=== PATIENT | male | born 1960 | race Caucasian/White ===

== ENCOUNTER 2016-12-09 19:36 | Inpatient (IN) | payer BC, SELFPAY ==
--- NOTE | ~2016-12-09 | CN ---
Consultation Report [facility] [address] [place]. [address] NAME: AMBAR DELGADO : 62 STATUS : ADM IN PAT#: [id number] AGE: 56 ADM/REG DATE : 12/09/16 MR#: [id number] REPORT SERV DATE: 12/10/16 DICTATED BY: SHAHRIAR SAN DATE: 12/10/16 REPORT STATUS : Draft TRANSCRIBED BY: MODVerónica DATE: 12/10/16 DATE OF CONSULTATION: HISTORY OF PRESENT ILLNESS: The patient is a 56-year-old gentleman whom I am consulted for Hemoccult-positive stool. The patient is somewhat confusing historian, but is cooperative. He gives a history of altered mental status with falls and slurred speech. Also was noted to have black stools, which were Hemoccult-positive in the emergency room. The patient complains of some heartburn, but denies any abdominal pain. He has no history of ulcers, but has had a history of ulcerative colitis with colon cancer in the past, and evidently he had a colectomy. There was question whether he had a colonoscopy back in 2012. He has some occasional pain in his right side of his abdomen, but otherwise no abdominal pain. No dysphagia. No vomiting. PAST MEDICAL HISTORY: 1. The patient with bipolar disorder. 2. History of ulcerative colitis and question colon cancer as above. 3. Hypertension. 4. History of anemia. 5. Herniorrhaphy. MEDICATIONS: Reviewed. He does take Pepto-Bismol as needed. He does not take any aspirin or ibuprofen. ALLERGIES: NONE. SOCIAL HISTORY: The patient does not use any tobacco or alcohol. PHYSICAL EXAMINATION: GENERAL: The patient is a white male, who is diaphoretic. LUNGS: Clear. CARDIOVASCULAR: Regular rhythm. ABDOMEN: Soft. There is well-healed scar and minimal tenderness in the right upper quadrant. LABORATORIES: Reviewed. Of note, his ALT is 277, AST of 473, bilirubin 1.1, alkaline phosphatase is 71. His hemoglobin is 15.6, hematocrit 45.6, his INR is 1.1. His white count is 18,700. His CT scan shows evidence of cholelithiasis without cholecystitis. ASSESSMENT: 1. The patient with Hemoccult-positive stool. As etiology is uncertain, certainly he is at risk of peptic ulcer disease, but his hemoglobin is fairly stable. 2. History of colon cancer status post colon resection and apparently a total colectomy. 3. Acute kidney injury with leukocytosis. Etiology is uncertain. 4. Bipolar disease. Consultation Report [place] [id number] [id number] NAME: AMBAR DELGADO : 62 STATUS : ADM IN PAT#: [id number] AGE: 56 ADM/REG DATE : 12/09/16 MR#: [id number] REPORT SERV DATE: 12/10/16 DICTATED BY: SHAHRIAR SAN DATE: 12/10/16 REPORT STATUS : Draft TRANSCRIBED BY: MODL DATE: 12/10/16 RECOMMENDATION: As seen, he is not actively bleeding at the present time, so will give him proton pump inhibitors and monitor his hemoglobin. 1. We will see if we can find records of previous colonoscopy or endoscopy. 2. Evaluation and treatment of other issues including leukocytosis, mental status change, and acute kidney injury prior to proceeding with GI evaluation. 3. Elevated transaminases, possibly of liver versus muscle origin. 4. Continue proton pump inhibitors. 5. We will follow hemoglobin. 6. We will look through his old charts to see if can find any evidence of previous GI evaluation. DMITRIY/DEWEY Shahriar San M.D. / [id number] CC: Gavin De Paz MD
--- NOTE | ~2016-12-09 | HP ---
History And Physical [place] [id number] [facility] [place]. [address] NAME: AMBAR CRAIG : 62 STATUS : ADM IN [facility]#: [id number] AGE: 56 ADM/REG DATE : 12/09/16 MR#: [id number] REPORT SERV DATE: 12/10/16 DICTATED BY: RUI HOWELL DATE: 12/09/16 REPORT STATUS : Draft TRANSCRIBED BY: MODL DATE: 12/09/16 DATE OF ADMISSION: 12/09/2016 POINT OF ENTRY: [facility] Emergency Department. PRIMARY CARE PHYSICIAN: Unknown at this time. CHIEF COMPLAINT: Altered mental status, slurred speech, black stools. HISTORY OF PRESENT ILLNESS: Mr. Craig is a 56-year-old gentleman with history of ulcerative colitis as well as colon cancer status post colectomy, who presents to the emergency department today with multiple complaints, including altered mental status, falls, slurred speech as well as black stools. The patient is confused and is a very difficult and poor historian. Unfortunately, he is alone. I was able to communicate with his brother, Joey Craig at [phone] to obtain some corroborating history. Brother states that Mr. Craig called him early this morning. When he spoke to him, he sounded confused, had some slurred-delayed latent speech. He went over to see his brother today and felt that he looked horrible as if he had aged 20 years in the three to four weeks that has been since he had personally seen him. Mr. Craig told his brother that he was falling as well as having concern that he may have drank some contaminated water or juice with mold. The patient states that he fell yesterday and hit his head and that he has had slurred speech and headache and confusion ever since. He also states one to two-day history of black and tarry stools as well as some right-sided abdominal pain. The patient also tells me the story again that he is concerned that he drank some contaminated or moldy water or juice few days ago. He otherwise denies any fevers, night sweats, chills, chest pain, shortness of breath, nausea, vomiting, diarrhea, or constipation. Initial evaluation in the emergency department notable for a sodium level of 125, BUN of 42, creatinine of 2.37, white counts of 18.7, and troponin mildly elevated at 0.09. The patient also with some transaminitis. CT scan of the brain was unremarkable. Chest x-ray was clear. CT scan of the belly did show some cholelithiasis without evidence of cholecystitis. The patient was subsequently admitted to the Hospitalist Service for further evaluation and management. COMPREHENSIVE REVIEW OF SYSTEMS: Otherwise negative, unless listed in history of present illness. PREVIOUS MEDICAL HISTORY: 1. Ulcerative colitis. No longer on therapy. 2. Colon cancer status post resection. 3. Ventral hernia status post mesh repairs. History And Physical [address] [address] NAME: AMBAR CRAIG : 62 STATUS : ADM IN [facility]#: [id number] AGE: 56 ADM/REG DATE : 12/09/16 MR#: [id number] REPORT SERV DATE: 12/10/16 DICTATED BY: RUI HOWELL DATE: 12/09/16 REPORT STATUS : Draft TRANSCRIBED BY: DEWEY DATE: 12/09/16 4. Hypertension. 5. Iron-deficiency anemia. 6. Remote history of hemolytic anemia. SURGICAL HISTORY: 1. Partial colectomy with diverting loop ileostomy and subsequent takedown. 2. Multiple ventral hernia repair with mesh. ALLERGIES: NO KNOWN DRUG ALLERGIES. HOME MEDICATIONS: 1. Xanax 1 mg b.i.d. p.r.n. 2. Adderall 10 mg t.i.d. 3. Pepto-Bismol 30 mL p.r.n. 4. Klonopin 1 mg b.i.d. 5. Klonopin 2 mg q.h.s. 6. Advil 400 mg daily p.r.n. 7. Lamictal 150 mg daily. SOCIAL HISTORY: Denies any tobacco, alcohol, or illicits. He is currently unemployed. Lives alone. Brother states he has a remote history of alcohol abuse, but none for few years now. FAMILY MEDICAL HISTORY: Father of an auto accident, otherwise unable to be obtained secondary to the patient's altered mental status. LABORATORIES AND IMAGIN. White count 18.7, hemoglobin is 15.6, hematocrit is 45.6, platelet count is 254. INR is 1.1. 2. Sodium is 125, potassium 3.9, chloride 84, carbon dioxide 26, BUN 42, creatinine 2.37, glucose is 123, calcium is 9.4, protein is 7.4, albumin is 3.8, bilirubin is 1.1, ALT is 277, AST 473, alkaline phosphatase is 71. 3. Troponin 0.09. 4. Lactic acid is 1.5. 5. Chest x-ray per my review shows no acute cardiopulmonary abnormality. CT scan of the brain shows no acute intracranial abnormality. 6. CT scan of the abdomen and pelvis shows cholelithiasis without evidence of cholecystitis. 7. EKG per my review shows sinus tachycardia with right bundle branch block with no evidence of any acute ischemia or infarction. Does have also a left anterior fascicular block. 8. Occult stool was positive. PHYSICAL EXAMINATION: VITAL SIGNS: Temperature is 98.6 degrees Fahrenheit, pulse is 113, respirations 20, saturating 97% on room air, and blood pressure 120/90; on recheck, it is now 132/74, heart rate of 89. History And Physical [address] [address] NAME: AMBAR CRAIG : 62 STATUS : ADM IN [facility]#: [id number] AGE: 56 ADM/REG DATE : 12/09/16 MR#: [id number] REPORT SERV DATE: 12/10/16 DICTATED BY: RUI HOWELL DATE: 12/09/16 REPORT STATUS : Draft TRANSCRIBED BY: DEWEY DATE: 12/09/16 GENERAL: The patient is awake, alert, in no acute distress, resting comfortably in bed. He is a well-developed, well-nourished male, who is alone at bedside. HEENT: Atraumatic and normocephalic. Dry mucous membranes. Pupils are equal, round, reactive to light and accommodation. Extraocular movements intact. No scleral icterus. NECK: No jugular venous distention. No carotid bruits. CARDIAC: Regular rate and rhythm. No murmurs, rubs, or gallops. Normal S1 and S2. LUNGS: Clear to auscultation bilaterally. No wheezes, rhonchi, or rales. ABDOMEN: Soft, mildly tender to palpation over the right upper quadrant. No rebound, guarding, or rigidity. EXTREMITIES: Warm and well perfused. No cyanosis, clubbing, or edema. SKIN: Warm and dry. PSYCH: Affect is blunted. NEURO: He is alert and oriented x2. He did not know what year it was, but he is able to tell me his full name and date of and answer other questions appropriately. He moves all extremities well. Cranial nerves II through XII are grossly intact. Speech is not dysarthric or aphasic. However, he does have very slow latent speech with very frequent delays and answering questions. Strength is 5/5 in bilateral upper and lower extremities. ASSESSMENT: Mr. Cragi is a 56-year-old gentleman, who presents to the emergency department with multiple complaints and found to have evidence of acute kidney injury, hyponatremia, altered mental status, leukocytosis, transaminitis, and elevated troponin level. PROBLEM LIST: 1. Acute kidney injury. 2. Hypochloremic hyponatremia. 3. Encephalopathy. 4. Leukocytosis. 5. Elevated troponin level. 6. Occult positive stools. 7. Transaminitis. 8. Speech abnormality. PLAN: 1. Acute kidney injury. The patient does take NSAIDs at home, which we will hold. Provide IV fluid hydration. Checking urine lytes as well as renal ultrasound and IV fluid hydration. 2. Hypochloremic hyponatremia, likely secondary to poor oral intake as the patient and brother do admit to that. We will check urine lytes as well as thyroid function studies and serum osmolality. Provide IV fluid hydration. 3. Altered mental status, likely multifactorial as he has evidence of dehydration from acute kidney injury as well as hyponatremia. CT scan of the brain was unremarkable. Urinalysis and urine drug screen are pending as his ammonia level, thyroid function studies, and vitamin B12. We will hold sedating medications as much as possible given his encephalopathy as well as speech abnormality. We will put him in for an MRI stroke protocol. 4. Leukocytosis, unclear etiology at this time. Chest x-ray is clear. CT of the abdomen shows cholelithiasis without evidence of cholecystitis. Blood culture has been History And Physical [address] [address] NAME: AMBAR CRAIG : 62 STATUS : ADM IN [facility]#: [id number] AGE: 56 ADM/REG DATE : 12/09/16 MR#: [id number] REPORT SERV DATE: 12/10/16 DICTATED BY: RUI HOWELL DATE: 12/09/16 REPORT STATUS : Draft TRANSCRIBED BY: DEWEY DATE: 12/09/16 obtained. Checking a procalcitonin level as well as followup urinalysis. 5. Elevated troponin level. The patient denies chest pain. EKG is nonischemic. We will continue to trend these out. Checking an echocardiogram. 6. Occult positive stools. Unclear etiology at this time as the patient's hemoglobin is 15.6. We will place the patient empirically on a PPI. Hold his NSAIDs as well as Pepto-Bismol. 7. Transaminitis, again unclear etiology. Checking urine drug screen, viral hepatitis panel as well as right upper quadrant abdominal ultrasound. 8. Speech abnormality. The patient is not aphasic or dysarthric, but does have some very delayed occasionally latent speech, which is abnormal per discussion with brother. As such, we will do an altered mental status delirium workup as well as check an MRI of the brain to rule out stroke. 9. DVT prophylaxis. TEDs and SCDs given occult positive stool. 10.Code status. The patient wished to be full code. CARLITAB/DEWEY Rui Howell MD / [id number] CC: Gavin De Paz MD
--- NOTE | ~2016-12-09 | CN ---
Consultation Report [facility] [address] [place]. [address] NAME: AMBAR DELGADO : 62 STATUS : ADM IN [facility]#: [id number] AGE: 56 ADM/REG DATE : 12/09/16 MR#: [id number] REPORT SERV DATE: 12/10/16 DICTATED BY: DATE: REPORT STATUS : Draft TRANSCRIBED BY: MODL DATE: 12/10/16 NEUROLOGY CONSULTATION DATE OF CONSULTATION: 12/10/2016 REASON FOR CONSULT: Encephalopathy, possible stroke. HISTORY OF PRESENT ILLNESS: This is a 56-year-old male who presented to [facility] on 12/09/2016. It is unclear why the patient is in the hospital as the patient is a poor historian. The patient was noted to have a supposedly encephalopathy, slurred speech. Apparently called patient's brother and reported that he has not been doing well. The patient's brother told the admitting physician, that patient was noted to have slurred speech, was difficult to communicate, and was noted to have poor appearance. As a result, the patient was brought to the emergency room. The patient was noted to have fallen roughly a day prior to the hospital admission according to record and was noted to have some confusion according to the patient. The patient also was noted to have difficulty ambulating. Otherwise, it was unclear whether or not patient has any kind of illness prior to the hospitalization. REVIEW OF SYSTEMS: Unable to be obtained from the patient secondary to patient's current mental status. PAST MEDICAL HISTORY: Significant for ulcerative colitis, no longer on therapy; colon cancer status post resection, as well as ventral hernia repair, hypertension, iron-deficiency anemia. The patient does reports a history of alcohol usage. He last used roughly 4 to 5 years ago. The patient denies current tobacco usage. ALLERGIES: THE PATIENT REPORTS NO KNOWN DRUG ALLERGIES. HOME MEDICATION: Apparently consist of Xanax, Adderall, Pepto-Bismol, Klonopin, Advil, and Lamictal. SOCIAL HISTORY: Denies current tobacco, alcohol, or recreational drug usage. Also, the patient does have a history of alcohol usage in the past and apparent history of tobacco usage. FAMILY HISTORY: Significant for motor vehicle accident. Otherwise unobtainable. PHYSICAL EXAMINATION: VITAL SIGNS: The patient was noted to have vital signs with T-max of 98.3, heart rate of 76 to 98, respiration of 17 to 20, and blood pressure of 115 to 132 over 70 to 75. GENERAL: The patient is well developed, well nourished, in no acute distress. CARDIOVASCULAR: Regular rate and rhythm. No carotid bruits were otherwise auscultated. PULMONARY EXAMINATION: Clear to auscultation bilaterally. Consultation Report [place] [id number] [place]. [address] NAME: AMBAR DELGADO : 62 STATUS : ADM IN PAT#: [id number] AGE: 56 ADM/REG DATE : 12/09/16 MR#: [id number] REPORT SERV DATE: 12/10/16 DICTATED BY: DATE: REPORT STATUS : Draft TRANSCRIBED BY: MODL DATE: 12/10/16 NEUROLOGICAL EXAMINATION: Generally, the patient is alert and oriented to person, place, year, and month. Follows simple and 2-step commands. Decreased attention span was noted. Psychomotor slowness was also noted. The patient was noted to have difficulties with registration and recall but is able to follow simple and 2-step commands. Dysarthria was appreciated but no significant aphasia was noted at time of evaluation. Cranial nerves 2 through 12; pupils are equal, round, and reactive to light. The patient was noted to have intact horizontal eye movements with stimulus tracking. Blink to threat response was noted. The facial expression was roughly symmetrical, reports symmetrical facial sensation. Midline tongue. Normal palatal movement. Mild decreased hearing. The patient demonstrated spontaneous movement of bilateral upper and lower extremity against gravity. No significant focal deficit was appreciated. Deep tendon reflex was 2+ throughout. Downgoing toe on bilateral plantar reflexes. Mild dysmetria was noted on bilateral [id number] examination. No ataxia was noted at the time of evaluation upon ambulation. LABORATORY STUDIES: Demonstrated white blood cell count of 18.7, hemoglobin of 15.6, hematocrit of 45.0, platelet count of 254. Chemistry panel; sodium 133, potassium 3.7, chloride of 94, bicarb 28, BUN of 22, creatinine 1.17, glucose of 87, calcium of 8.5, magnesium of 2.1. Procalcitonin level of 0.23 with the patient noted to have serum CPK level of 6950. Folate was 13.8, vitamin B12 of 4604, TSH of 1.08, free T4 of 1.45, hemoglobin A1c of 4.8 at the time of evaluation. UDS is negative with urinalysis demonstrating negative leukocyte esterase, negative nitrite. CT scan of the brain otherwise demonstrated no acute process. IMPRESSION: 1. Encephalopathy with the patient still noted with confusion as well as decreased attention span. The patient on examination will follow commands, and no aphasia was found and no clear focal deficit was noted. We will check serum ammonia level, hepatitis panel, HIV and RPR with morning labs. We will recommend discontinuing MRI for now given patient's ankle bracelets for tracking as well as lack of focal deficits. If the patient is noted to have persistently elevated ammonia level, we will evaluate for lactulose. RECOMMENDATION: 1. Discontinue MRI of the brain. 2. Hepatitis panel, HIV, serum RPR with morning labs. 3. Ammonia level with morning labs. 4. We will continue to monitor patient's mental status. [facility]/DONALDL Boyd Coyle MD Consultation Report [address] [address] NAME: AMBAR DELGADO : 62 STATUS : ADM IN [facility]#: [id number] AGE: 56 ADM/REG DATE : 12/09/16 MR#: [id number] REPORT SERV DATE: 12/10/16 DICTATED BY: DATE: REPORT STATUS : Draft TRANSCRIBED BY: MODL DATE: 12/10/16 / [id number] CC: Gavin De Paz MD
--- NOTE | ~2016-12-09 | DS ---
Discharge Summary [facility] [address] [facility] [place]. [address] NAME: AMBAR DELGADO : 62 STATUS : DIS IN PAT#: [id number] AGE: 56 ADM/REG DATE : 12/09/16 MR#: [id number] REPORT SERV DATE: 12/14/16 DICTATED BY: BORA GONSALES DATE: 12/13/16 REPORT STATUS : Draft TRANSCRIBED BY: DEWEY DATE: 12/13/16 ADMISSION DATE: 12/09/2016 DISCHARGE DATE: 12/13/2016 CONDITION ON DISCHARGE: Stable. ADVICE ON DISCHARGE: To follow up with his psychiatrist within the next one to two weeks. DIAGNOSES ON DISCHARGE: 1. Altered mental status-resolved. The patient is back at his baseline. 2. Black stools or melena with Hemoccult-positive stool, this has resolved. Gastroenterology had been consulted and they do not plan on doing inpatient colonoscopy at this time. The patient would like to follow up with his PCP regarding his colonoscopy as the patient has history of colon cancer status post colectomy in the past. 3. Slurred speech, probably secondary to alcohol use-this has resolved also. 4. 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 5. Several psychiatric issues including bipolar disorder/attention deficit disorder/anxiety for which he is on benzodiazepines including Klonopin and Xanax, and also on Adderall through his psychiatrist. The patient also has a right ankle bracelet as he probably got into trouble with the law which he would not want to explain to me as to why and how. So the patient is being monitored. BRIEF HOSPITAL COURSE: The patient is a 56-year-old male patient with a history of mental illness including bipolar disorder/generalized anxiety disorder, and ADD, who was hospitalized because his brother brought him in in altered mental status. His brother said that he found him confused and not taking care of himself for days and decided to bring him in. When he was hospitalized he complained of knee pain and on the knee there seems to be claw khan. According to the patient, he states that when he [place] lying in the [place] without taking care of himself probably a wild animal attacked him and those are khan from a wild animal clawing him. However, the knee itself looks not swollen. There is some superficial redness, but there is no effusion and there are superficial scratches as mentioned across the right knee. The patient also states that he wants something for back pain because his back hurts him all the time also. However, his altered mental status has improved and on the day that I have seen him which is the day of discharge, the patient is talking, not confused, definitely does not have slurred speech, but seems extremely agitated. He states that he would like to go home, but he would like to get something for back pain. Discharge Summary [facility] [address] [place]. [address] NAME: AMBAR DELGADO : 62 STATUS : DIS IN PAT#: [id number] AGE: 56 ADM/REG DATE : 12/09/16 MR#: [id number] REPORT SERV DATE: 12/14/16 DICTATED BY: BORA GONSALES DATE: 12/13/16 REPORT STATUS : Draft TRANSCRIBED BY: DEWEY DATE: 12/13/16 However, he is able to get up and walk around without any difficulty whatsoever. He is also able to bear weight on his right knee. Clinically, he seems to be very stable and I do not think that he needs anything stronger for pain as he is describing. Besides the patient is already on multiple addictive medications including benzodiazepines and Adderall. Hence, I am discharging this patient home with the above instructions and with the only following two extra medications that I will be sending him home on, Duricef 1 g p.o. b.i.d. for seven days for protection against cellulitis from his right knee even though at this time there does not seem to be any evidence of cellulitis, the scratch khan on his right knee seem to be pretty deep. Also we will send the patient home with Elimite cream which he is going to apply from neck down as he does have some lesions on the right arm that is highly suggestive of scabies. Other than that, all his home medications have been resumed and he has been asked to resume all his home medications and these include the followin. Adderall that he takes every day 10 mg p.o. t.i.d. 2. Xanax 1 mg p.o. b.i.d. as needed. 3. Klonopin 1 mg p.o. b.i.d. 4. Klonopin 2 mg at bedtime. 5. Lamictal 150 mg p.o. daily. 6. Ibuprofen 400 mg p.o. as needed once a day. 7. Pepto-Bismol 30 mL p.o. daily as needed. The patient has been advised to stop drinking, and he again insists that he does not drink. Alcohol levels when the patient came in was less than 10. Blood alcohol level was less than 10 when he was admitted. However, I have advised him to stop drinking and at this time after getting a Psychiatric evaluation by Dr. Paul it has been decided that the patient is mentally competent to make his own decisions, and hence the decision to send him home rather than to a mental health facility. LABORATORY DATA: I do have the following most recent labs on this patient and these include the followin. Electrolyte profile on the day of discharge shows normal electrolytes including sodium, potassium, BUN, creatinine, mild elevation in liver enzymes, including ALT and AST and CPK. ALT and AST elevation is most likely due to chronic alcohol use. 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 2. Ammonia levels were 38. 3. Rapid plasma reagin, has come back negative. HIV has come back nonreactive. 4. Blood cultures have come back with no growth at two days. 5. Urinalysis shows hazy urine, large amount of blood, but no evidence of definitive infection. 6. Procalcitonin level has come back normal at 0.23. 7. Serum drug screen as mentioned above has come back with less than 2 of acetaminophen and salicylates levels of less than 1.7 mg/dL. Alcohol levels are less than 10 mg/dL. 8. The patient had a brain CT scan without contrast that shows no acute findings and negative noncontrast CT of the brain. Chest x-ray, PA and lateral view shows no acute Discharge Summary [address] [address] NAME: AMBAR DELGADO : 62 STATUS : DIS IN PAT#: [id number] AGE: 56 ADM/REG DATE : 12/09/16 MR#: [id number] REPORT SERV DATE: 12/14/16 DICTATED BY: BORA GONSALES DATE: 12/13/16 REPORT STATUS : Draft TRANSCRIBED BY: DEWEY DATE: 12/13/[address] scan of the abdomen and pelvis shows that the patient does have cholelithiasis, but no evidence of acute cholecystitis. 9. The patient has a 2.7 cm lipoma in the liver. Stable changes of a ventral hernia repair, and subtotal colectomy and ileorectal anastomosis for previous colon cancer. 10.The patient also underwent a brain CT scan without contrast again, which again came back continued normal appearance. A complete abdominal survey that was done on 12/12/2016 again showed essentially the same findings and inadequate visualization of the pancreas. So with all negative studies and the patient able to ambulate normally and able to eat and without any nausea, vomiting, or diarrhea or any further black stools the patient is being discharged home in stable condition with advice as above. CONSULTATIONS OBTAINED DURING THIS HOSPITALIZATION: Include GI consult and Psychiatric consult. I have spent about 40 minutes in coordinating discharge care of this patient including face- to-face encounter and summarizing this discharge. PHONG/DEWEY Bora Gonsales M.D. / [id number] CC: Bora Gonsales M.D.
[2016-12-09 18:08] LABS: BASOPHILS 0.1 %; BASOPHILS ABSOLUTE 0.02 10/3/uL (0.0-0.16); EOSINOPHILS 0.2 %; EOSINOPHILS ABSOLUTE 0.03 10/3/uL (0.0-0.53); HEMOGLOBIN 15.6 g/dL (13.6-17.8); IMMATURE GRANULOCYTES 0.6 %; IMMATURE GRANULOCYTES ABSOLUTE 0.11 10/3/uL (0.0-0.11); LYMPHOCYTES 9.7 %; LYMPHOCYTES ABSOLUTE 1.81 10/3/uL (0.67-4.30); MEAN CORPUSCULAR HEMOGLOB 32.1 pg (26.0-34.0); MONOCYTES 12.7 %; MONOCYTES ABSOLUTE 2.38 10/3/uL (0.21-1.20); NEUTROPHILS 76.7 %; NEUTROPHILS ABSOLUTE 14.36 10/3/uL (2.02-8.40); RBC DISTRIBUTION WIDTH 13.5 % (12.0-16.0); RED CELL COUNT 4.86 10/6/uL (4.7-6.1)
[2016-12-09 18:18] LABS: MEAN CORPUSCULAR VOLUME 84.4 fL (80-100); PLATELET COUNT 254 10/3/uL (150-400); WHITE BLOOD CELLS 18.7 10/3/uL (4.5-10.5)
[2016-12-09 18:19] LABS: INTERNATIONAL NORMAL RATI 1.1 UNITS (-); MANUAL DIFF NO %; MEAN CORPUS HGB CONC 34.7 g/dL (32.0-36.0); PARTIAL THROMBO TIME 28.2 SEC (22.5-37.2); PROTIME (NOT ORD) 14.2 SEC (12.0-14.5)
[2016-12-09 18:23] LABS: A/G RATIO 1.1 (0.7-1.9); ALBUMIN 3.8 G/DL (3.5-5.0); ALKALINE PHOSPHATASE 71 U/L (45-117); CALCIUM, SERUM 9.4 MG/DL (8.5-10.4); CO2 (CARBON DIOXIDE) 26 MMOL/L (24-34); GLOBULIN 3.6 G/DL (2.5-4.1); POTASSIUM, SERUM 3.9 MMOL/L (3.5-5.3); SGOT(AST) 473 U/L (5-40); SGPT(ALT) 277 U/L (5-65); TOTAL BILIRUBIN 1.1 MG/DL (0-1.2); TOTAL PROTEIN 7.4 G/DL (6.0-8.5)
[2016-12-09 18:25] LABS: BUN (BLOOD UREA NITROGEN) 42 MG/DL (6-23); CHLORIDE, SERUM 84 MMOL/L (96-112); CREATININE 2.37 MG/DL (0.70-1.30); GFR AFRICAN AMERICAN 34 ML/MIN (>=60); GFR NON AFRICAN AMERICAN 30 ML/MIN (>=60); GLUCOSE, SERUM 123 MG/DL (60-99); SODIUM, SERUM 125 MMOL/L (135-148); TROPONIN I 0.09 NG/ML (<0.05)
[~2016-12-09 19:36] MED LIST: ADDERALL20 MG PO; AMB10 PO; ARIMIDEX1 PO; ASACOL PO; IMOD PO; KLONO1 PO; L-THEANINE PO; LAMICTAL10 PO; LORTAB10 PO; LUNESTA1 MG PO; Lamictal PO; MORPHINE SUL PO; MSCONTIN PO; MULTIPLE VIT PO; MULTIVIT/MIN PO; NAP500 PO; NORCO1 TAB PO; NORV10 PO; P10 PO; P5 PO; PRILOSEC40 MG PO; PROVIGIL2 PO; SEROQUEL1C PO; SEROQUEL25 PO; TYLENOL ARTH650 MG PO; V5 PO; VALIUM10 MG PO; VIT B; XANAX1 MG PO; [UNRECOGNIZED DRUG - REMARK]
[2016-12-09] MEDS ORDERED: ADDER10 PO (19:46)
[2016-12-09] MEDS ORDERED: XANAX1 MG PO (19:46)
[2016-12-09] MEDS ORDERED: LAMICTAL150 MG PO (19:47)
[2016-12-09] MEDS ORDERED: KLONO1 PO (19:47)
[2016-12-09] MEDS ORDERED: KLONO2 PO (19:47)
[2016-12-09] MEDS ORDERED: ADVIL PO (19:48)
[2016-12-09] MEDS ORDERED: PEPTO BISMOL LIQ1 ML PO (19:49)
[2016-12-09 21:27] LABS: LACTATE 1.5 MMOL/L (0.3-2.4)
[2016-12-10 06:19] LABS: CHLORIDE, SERUM 93 MMOL/L (96-112); CO2 (CARBON DIOXIDE) 25 MMOL/L (24-34); CPK (IF ELEVATED MB BANDS) 6689 U/L (0-200); FREE T4 1.45 NG/DL (0.76-1.46); GLUCOSE, SERUM 110 MG/DL (60-99); POTASSIUM, SERUM 3.4 MMOL/L (3.5-5.3); SODIUM, SERUM 130 MMOL/L (135-148)
[2016-12-10 06:20] LABS: BUN (BLOOD UREA NITROGEN) 32 MG/DL (6-23); CALCIUM, SERUM 8.2 MG/DL (8.5-10.4); FOLATE 13.8 NG/ML (>5.2); GFR AFRICAN AMERICAN 65 ML/MIN (>=60); GFR NON AFRICAN AMERICAN 56 ML/MIN (>=60); TROPONIN I 0.08 NG/ML (<0.05)
[2016-12-10 06:27] LABS: PROCALCITONIN 0.23 ng/mL (<0.5)
[2016-12-10 06:43] LABS: CK-MB 18.6 NG/ML; CKMB INDEX (NOT ORD) 0.3
[2016-12-10 11:41] LABS: GLYCOHEMOGLOBIN (HbA1c) 4.8 % (4.7-6.1)
[2016-12-10 13:59] LABS: CALCIUM, SERUM 8.5 MG/DL (8.5-10.4); CHLORIDE, SERUM 94 MMOL/L (96-112); CO2 (CARBON DIOXIDE) 28 MMOL/L (24-34); CPK (IF ELEVATED MB BANDS) 6915 U/L (0-200); CREATININE 1.17 MG/DL (0.70-1.30); GFR AFRICAN AMERICAN 81 ML/MIN (>=60); GFR NON AFRICAN AMERICAN 70 ML/MIN (>=60); POTASSIUM, SERUM 3.7 MMOL/L (3.5-5.3); SODIUM, SERUM 133 MMOL/L (135-148)
[2016-12-10 14:00] LABS: ACETAMINOPHEN LEVEL (TYLENOL) < 2.0 MCG/ML (10.0-20.0); ALCOHOL < 10 MG/DL (0); BUN (BLOOD UREA NITROGEN) 22 MG/DL (6-23); GLUCOSE, SERUM 87 MG/DL (60-99); SALICYLATE < 1.7 MG/DL (-); TROPONIN I 0.07 NG/ML (<0.05)
[2016-12-10 14:06] LABS: OSMOLALITY, URINE 505 MOSM/KG (50-1200)
[2016-12-10 14:17] LABS: SODIUM, URINE 12 MEQ/L
[2016-12-10 14:18] LABS: AMPHETAMINES (NOT ORD) NEG (NEG); BARBITURATES (NOT ORDERED NEG (NEG); BENZODIAZEPINES (NOT ORD) NEG (NEG); CANNABINOIDS (THC) NEG (NEG); COCAINE (NOT ORDERED) NEG (NEG); OPIATES NEG (NEG); PHENCYCLIDINE(PCP) NEG (NEG); TRICYCLICS NEG (NEG)
[2016-12-10 14:22] LABS: ASCORBIC ACID (UR NOT ORDER) NEG (NEG); BILIRUBIN, URINE NEGATIVE (NEG); KETONE, URINE NEGATIVE (NEG); LEUKOCYTE ESTERASE(NOT OR NEG (NEG); WBC (NOT ORDERED) (RFLEX) 3 (0-5)
[2016-12-10 14:44] LABS: CKMB INDEX (NOT ORD) 0.2
[2016-12-10 22:19] LABS: BUN (BLOOD UREA NITROGEN) 17 MG/DL (6-23); CALCIUM, SERUM 8.4 MG/DL (8.5-10.4); CHLORIDE, SERUM 97 MMOL/L (96-112); CO2 (CARBON DIOXIDE) 28 MMOL/L (24-34); CREATININE 1.04 MG/DL (0.70-1.30); GFR AFRICAN AMERICAN 93 ML/MIN (>=60); GFR NON AFRICAN AMERICAN 80 ML/MIN (>=60); GLUCOSE, SERUM 75 MG/DL (60-99); POTASSIUM, SERUM 3.9 MMOL/L (3.5-5.3); SODIUM, SERUM 134 MMOL/L (135-148)
[2016-12-11 06:53] LABS: BASOPHILS 0.3 %; BASOPHILS ABSOLUTE 0.02 10/3/uL (0.0-0.16); EOSINOPHILS 1.3 %; EOSINOPHILS ABSOLUTE 0.09 10/3/uL (0.0-0.53); IMMATURE GRANULOCYTES 0.9 %; IMMATURE GRANULOCYTES ABSOLUTE 0.06 10/3/uL (0.0-0.11); LYMPHOCYTES 24.6 %; LYMPHOCYTES ABSOLUTE 1.66 10/3/uL (0.67-4.30); MEAN CORPUS HGB CONC 35.9 g/dL (32.0-36.0); MEAN CORPUSCULAR HEMOGLOB 32.2 pg (26.0-34.0); MEAN PLATELET VOLUME 9.5 fL (9.2-13.0); MONOCYTES 9.5 %; MONOCYTES ABSOLUTE 0.64 10/3/uL (0.21-1.20); NEUTROPHILS 63.4 %; NEUTROPHILS ABSOLUTE 4.28 10/3/uL (2.02-8.40); RBC DISTRIBUTION WIDTH 13.6 % (12.0-16.0)
[2016-12-11 06:58] LABS: HEMATOCRIT 34.5 % (40.0-51.0); HEMOGLOBIN 12.4 g/dL (13.6-17.8); MEAN CORPUSCULAR VOLUME 89.6 fL (80-100); PLATELET COUNT 175 10/3/uL (150-400); RED CELL COUNT 3.85 10/6/uL (4.7-6.1)
[2016-12-11 06:59] LABS: MANUAL DIFF NO %; WHITE BLOOD CELLS 6.8 10/3/uL (4.5-10.5)
[2016-12-11 07:38] LABS: CALCIUM, SERUM 8.6 MG/DL (8.5-10.4); CHLORIDE, SERUM 101 MMOL/L (96-112); CO2 (CARBON DIOXIDE) 26 MMOL/L (24-34); CREATININE 0.87 MG/DL (0.70-1.30); DIRECT BILIRUBIN 0.2 MG/DL (0.0-0.4); GFR AFRICAN AMERICAN 113 ML/MIN (>=60); GFR NON AFRICAN AMERICAN 97 ML/MIN (>=60); GLUCOSE, SERUM 84 MG/DL (60-99); POTASSIUM, SERUM 3.9 MMOL/L (3.5-5.3); SGOT(AST) 230 U/L (5-40); SODIUM, SERUM 136 MMOL/L (135-148)
[2016-12-11 07:41] LABS: ALBUMIN 2.7 G/DL (3.5-5.0); ALKALINE PHOSPHATASE 44 U/L (45-117); BUN (BLOOD UREA NITROGEN) 12 MG/DL (6-23); INDIRECT BILIRUBIN(NOT ORDER) 0.4 MG/DL (0.1-0.9); TOTAL BILIRUBIN 0.6 MG/DL (0-1.2); TOTAL PROTEIN 5.3 G/DL (6.0-8.5)
[2016-12-11 07:42] LABS: CPK 2886 U/L (0-200); SGPT(ALT) 193 U/L (5-65)
[2016-12-11 08:25] LABS: TROPONIN I 0.05 NG/ML (<0.05)
[2016-12-11 09:41] LABS: BUN (BLOOD UREA NITROGEN) 11 MG/DL (6-23); CALCIUM, SERUM 8.3 MG/DL (8.5-10.4); CHLORIDE, SERUM 101 MMOL/L (96-112); CO2 (CARBON DIOXIDE) 24 MMOL/L (24-34); CREATININE 0.94 MG/DL (0.70-1.30); GFR AFRICAN AMERICAN 105 ML/MIN (>=60); GFR NON AFRICAN AMERICAN 91 ML/MIN (>=60); POTASSIUM, SERUM 3.7 MMOL/L (3.5-5.3); SODIUM, SERUM 136 MMOL/L (135-148)
[2016-12-11 09:42] LABS: GLUCOSE, SERUM 117 MG/DL (60-99)
[2016-12-12 06:01] LABS: BASOPHILS 0.7 %; BASOPHILS ABSOLUTE 0.05 10/3/uL (0.0-0.16); EOSINOPHILS 3.3 %; EOSINOPHILS ABSOLUTE 0.23 10/3/uL (0.0-0.53); HEMATOCRIT 32.4 % (40.0-51.0); HEMOGLOBIN 11.6 g/dL (13.6-17.8); IMMATURE GRANULOCYTES 1.3 %; IMMATURE GRANULOCYTES ABSOLUTE 0.09 10/3/uL (0.0-0.11); LYMPHOCYTES 23.9 %; LYMPHOCYTES ABSOLUTE 1.68 10/3/uL (0.67-4.30); MEAN CORPUS HGB CONC 35.8 g/dL (32.0-36.0); MEAN CORPUSCULAR HEMOGLOB 32.6 pg (26.0-34.0); MEAN PLATELET VOLUME 9.6 fL (9.2-13.0); MONOCYTES 8.3 %; MONOCYTES ABSOLUTE 0.58 10/3/uL (0.21-1.20); NEUTROPHILS 62.5 %; PLATELET COUNT 189 10/3/uL (150-400); RBC DISTRIBUTION WIDTH 13.6 % (12.0-16.0); RED CELL COUNT 3.56 10/6/uL (4.7-6.1)
[2016-12-12 06:02] LABS: MANUAL DIFF NO %
[2016-12-12 06:25] LABS: ALBUMIN 2.5 G/DL (3.5-5.0); BUN (BLOOD UREA NITROGEN) 10 MG/DL (6-23); CALCIUM, SERUM 8.3 MG/DL (8.5-10.4); CHLORIDE, SERUM 107 MMOL/L (96-112); CO2 (CARBON DIOXIDE) 23 MMOL/L (24-34); CPK 1689 U/L (0-200); CREATININE 0.83 MG/DL (0.70-1.30); GFR AFRICAN AMERICAN 115 ML/MIN (>=60); GFR NON AFRICAN AMERICAN 99 ML/MIN (>=60); GLUCOSE, SERUM 128 MG/DL (60-99); POTASSIUM, SERUM 3.8 MMOL/L (3.5-5.3); SGOT(AST) 162 U/L (5-40); SGPT(ALT) 163 U/L (5-65); SODIUM, SERUM 139 MMOL/L (135-148); TOTAL BILIRUBIN 0.3 MG/DL (0-1.2); TOTAL PROTEIN 5.1 G/DL (6.0-8.5)
[2016-12-12 06:33] LABS: ALKALINE PHOSPHATASE 79 U/L (45-117); GLOBULIN 2.6 G/DL (2.5-4.1)
[2016-12-13 06:17] LABS: BUN (BLOOD UREA NITROGEN) 9 MG/DL (6-23); CALCIUM, SERUM 8.5 MG/DL (8.5-10.4); CHLORIDE, SERUM 108 MMOL/L (96-112); CO2 (CARBON DIOXIDE) 24 MMOL/L (24-34); CPK 869 U/L (0-200); CREATININE 0.82 MG/DL (0.70-1.30); GFR AFRICAN AMERICAN 115 ML/MIN (>=60); GFR NON AFRICAN AMERICAN 100 ML/MIN (>=60); SGOT(AST) 107 U/L (5-40); SGPT(ALT) 145 U/L (5-65); SODIUM, SERUM 141 MMOL/L (135-148)
[2016-12-13 06:18] LABS: GLUCOSE, SERUM 90 MG/DL (60-99)
[2016-12-13] MEDS ORDERED: DURICEF (13:56)
[2016-12-13] MEDS ORDERED: DURICEF PO (13:57)
[2016-12-13] MEDS ORDERED: ELIMITE CREAM 560 GM TOP (13:58)
[2016-12-14 16:31] LABS: HBV DNA QUANT LOG10 VALUE Not Detected (NOTDET); HBV DNA QUANT RESULT Not Detected (NOTDET)
== END 2016-12-13 15:51 | disposition home or self-care (01) | DRG 56 ==
LOC: ER 19:36 → 1SO 22:46
PROVIDERS: Emergency Medicine; Hospitalist; Internal Medicine; Nurse Practitioner Family
DX: G31.2 Degeneration of nervous system due to alcohol (principal); G92 Toxic encephalopathy; N17.9 Acute kidney failure, unspecified; E87.1 Hypo-osmolality and hyponatremia; K92.1 Melena; E87.8 Other disorders of electrolyte and fluid balance, not elsewhere classified; D17.5 Benign lipomatous neoplasm of intra-abdominal organs; S80.211A Abrasion, right knee, initial encounter; E86.0 Dehydration; I10 Essential (primary) hypertension; F41.1 Generalized anxiety disorder; F98.8 Other specified behavioral and emotional disorders with onset usually occurring in childhood and adolescence; K80.20 Calculus of gallbladder without cholecystitis without obstruction; W18.30XA Fall on same level, unspecified, initial encounter; R47.81 Slurred speech; F31.9 Bipolar disorder, unspecified; Z85.038 Personal history of other malignant neoplasm of large intestine; Z90.49 Acquired absence of other specified parts of digestive tract; Z79.899 Other long term (current) drug therapy
CPT/HCPCS: 70450; 71020; 74176; 76700; 80048; 80053; 80076; 80305; 80307; 81001; 82140; 82550; 82553; 82570; 82607; 82746; 83036; 83605; 83735; 83930; 83935; 84145; 84300; 84439; 84443; 84450; 84460; 84484; 85025; 85610; 85730; 86592; 87040; 87389; 87517; 93005; 93306; 96374; 99291; A9270-GY; C9113; J1980; J2405; J3411

== ENCOUNTER 2016-12-13 16:42 | Emergency (ER) | payer BC, SELFPAY ==
[~2016-12-13 16:42] MED LIST changes: +ADDER10 PO; +ADVIL PO; +DURICEF; +DURICEF PO; +ELIMITE CREAM 560 GM TOP; +KLONO2 PO; +LAMICTAL150 MG PO; +PEPTO BISMOL LIQ1 ML PO
== END 2016-12-13 18:08 | disposition home or self-care (01) ==
LOC: ER 16:42
DX: M54.6 Pain in thoracic spine (principal); I10 Essential (primary) hypertension; F31.9 Bipolar disorder, unspecified; Z85.038 Personal history of other malignant neoplasm of large intestine; D64.9 Anemia, unspecified; Z86.73 Personal history of transient ischemic attack (TIA), and cerebral infarction without residual deficits; Z79.899 Other long term (current) drug therapy
CPT/HCPCS: 72050; 72072; 99283